=== PATIENT | male | born 1975 | race Caucasian/White ===

== ENCOUNTER 2021-11-27 16:40 | Emergency (ER) | payer MEDICAID ==
[~2021-11-27] VITALS: Ht 188 cm; Wt 96.2 kg
[2021-11-27 16:57] VITALS: BP 146/91
--- NOTE | 2021-11-27 17:15 | NUR ---
46 Y/O MALE BIB , C/O LACERATION ON THE LEFT THIGH 11CM IN LENGTH, 1.5-2 CM IN DEPTH, NO ACTIVE BLEEDING NOTED, SUBCUTANEOUS TISSUE CAN BE VISUALIZED. 3/10 PAIN DULL ON THE AREA. NO REDNESS, NO SWELLING. DOES NOT RECALL LAST TETANUS SHOT. PT STATES THAT THEY WERE CUTTING WOOD AND THE SAW SLIPPED. NKA PMH DENIES
--- NOTE | 2021-11-27 17:15 | NUR ---
BRAXTON MATOS AT BEDSIDE
[2021-11-27] MEDS ORDERED: LIDOCAINE/EPI 1% 1:100000 20 ML VIAL INJ ONE (17:20)
[2021-11-27] MEDS ORDERED: BACITRACIN OINT 500 UNITS/GM PKT TP ONE (17:20)
--- NOTE | 2021-11-27 17:30 | NUR ---
TDAP consent formed signed
--- NOTE | 2021-11-27 18:04 | NUR ---
BRAXTON MATOS AT BEDSIDE
[2021-11-27] MEDS ORDERED: BACI1PAC6 TP (18:38)
--- NOTE | 2021-11-27 18:40 | NUR ---
Patient states 0/10 pain at this time.
[2021-11-27 18:45] VITALS: BP 136/84
--- NOTE | 2021-11-27 18:55 | NUR ---
Patient discharged with v/s stable. Written and verbal after care instructions given and explained for Laceratoin Care. Work note provided. Patient alert, oriented and verbalized understanding of instructions. Ambulatory with crutches, steady gait accompanied by spouse. All questions addressed prior to discharge. ID band removed. Patient advised to follow up with PMD. Rx of Bacitracin given. Patient educated on indication of medication including possible reaction and side effects. Opportunity to ask questions provided and answered.
== END 2021-11-27 18:55 | disposition home or self-care (01) ==
LOC: MED 16:40
DX: S81.812A Laceration without foreign body, left lower leg, initial encounter (principal); Z79.899 Other long term (current) drug therapy; D64.9 Anemia, unspecified; W27.0XXA Contact with workbench tool, initial encounter; Y93.89 Activity, other specified; Y92.89 Other specified places as the place of occurrence of the external cause; Y99.8 Other external cause status
CPT/HCPCS: 12004; 90471; 90715; 99283; J2001

== ENCOUNTER 2021-11-29 14:46 | Emergency (ER) | payer MEDICAID ==
[~2021-11-29] VITALS: Ht 188 cm; Wt 99.8 kg
[~2021-11-29 14:46] MED LIST: BACI1PAC6 TP
[2021-11-29] MEDS ORDERED: BACITRACIN OINT 500 UNITS/GM PKT TP ONE (15:10)
[2021-11-29 15:13] VITALS: BP 127/66
--- NOTE | 2021-11-29 15:14 | NUR ---
DR. WELDON WITH PT IN TRIAGE FOR FURTHER EVALUATION.
--- NOTE | 2021-11-29 15:17 | NUR ---
46 Y/O MALE HERE FOR RECHECK S/P SUTURE PLACED TO LEFT THIGH X2DAYS. PT STATES PAIN DENIES FEVER/CHILLS. DENIES N/V/D. PMH: HTN, ANEMIA, LIVER ENLARGEMENT NKA
[2021-11-29 15:28] VITALS: BP 127/66
--- NOTE | 2021-11-29 15:28 | NUR ---
Patient discharged with v/s stable. Written and verbal after care instructions given FOR LACERATION CARE and explained. Patient verbalized understanding. Ambulatory with steady gait. All questions addressed prior to discharge. Advised to follow up with PMD.
== END 2021-11-29 15:28 | disposition home or self-care (01) ==
LOC: MED 14:46
DX: Z48.01 Encounter for change or removal of surgical wound dressing (principal); I10 Essential (primary) hypertension; D64.9 Anemia, unspecified; Z79.2 Long term (current) use of antibiotics
CPT/HCPCS: 99282

== ENCOUNTER 2021-12-12 16:12 | Emergency (ER) | payer MEDICAID ==
[~2021-12-12] VITALS: Ht 188 cm; Wt 95.3 kg
[2021-12-12 16:18] VITALS: BP 145/103
--- NOTE | 2021-12-12 16:21 | NUR ---
PT TO AWAIT IN LOBBY
--- NOTE | 2021-12-12 17:20 | NUR ---
PT AMBULATED TO BED, STEADY GAIT
[2021-12-12] MEDS ORDERED: CEPH-588 PO (18:06)
--- NOTE | 2021-12-12 18:24 | NUR ---
Patient discharged with v/s stable. Written and verbal after care instructions given and explained. Patient alert, oriented and verbalized understanding of instructions. Ambulatory with steady gait. All questions addressed prior to discharge. ID band removed. Patient advised to follow up with PMD. Rx of CEPHALEXIN given. Opportunity to ask questions provided and answered.
[2021-12-12 18:26] VITALS: BP 141/90
== END 2021-12-12 18:24 | disposition home or self-care (01) ==
LOC: MED 16:12
DX: S71.111D Laceration without foreign body, right thigh, subsequent encounter (principal); Z48.02 Encounter for removal of sutures; I10 Essential (primary) hypertension; Z79.2 Long term (current) use of antibiotics; X58.XXXD Exposure to other specified factors, subsequent encounter
CPT/HCPCS: 99283